=== PATIENT | male | born 1970 ===

== ENCOUNTER 2021-03-21 06:53 | Day surgery (SDC) | payer OTHER ==
[2021-03-21] MEDS ORDERED: NEURONTIN600 M1 PO (18:59)
[2021-03-21] MEDS ORDERED: POLY119PG PO (18:59)
[2021-03-21] MEDS ORDERED: PERCOCET 5-3251 EACH PO (18:59)
== END 2021-03-21 22:55 | disposition home or self-care (01) ==
LOC: CIR.AMB 06:53
PROVIDERS: ATTEND Surgery
DX: K42.0 Umbilical hernia with obstruction, without gangrene (principal); Z20.822 Contact with and (suspected) exposure to COVID-19